=== PATIENT | male | born 1960 | race Caucasian/White ===

== ENCOUNTER 2017-06-03 20:27 | Emergency (ER) | payer OTHER ==
[~2017-06-03] VITALS: Ht 167.6 cm; Wt 74.0 kg
[2017-06-03 21:15] VITALS: BP 127/69; PULSE 78; RESP 20; O2SAT 99
[2017-06-03] MEDS ORDERED: 0.9% Sodium Chloride 1,000 ML IV ONE (21:44)
[2017-06-03] MEDS ORDERED: Ondansetron 2 mg/mL 2 mL Inj IVPUSH ONE (21:45)
[2017-06-03] MEDS ORDERED: LidocaineVisc 2%:Antacid 1:1 10 mL Syringe PO ONE (21:45)
[2017-06-03 21:52] LABS: BASOPHILS % (AUTO) 0.2 % (0-3); EOSINOPHILS % (AUTO) 3.5 % (0-5); MONOCYTES % (AUTO) 6.6 % (4-12); Mean Corpuscular Hemoglobin 38.2 pg (27.0-35.0); Mean Corpuscular Volume 105.6 fL (81-100); NEUTROPHILS % (AUTO) 78.6 % (40-74); Platelet Count 229 bil/L (150-400)
--- NOTE | 2017-06-03 22:36 | ED.REPORT ---
HPI-General Illness Date of Service Jun 03, 2017 ED Provider: Iftikhar Cosby MD Pt is a 57 y/o male w/ a hx of acid reflux presenting to the ED c/o an episode of epigastric burning with radiation up the esophagus which occurred at 16:00 today. The pain lasted until he arrived to the ED and is resolved at time of interview after GI cocktail and Zofran. During the episode of pain, he was experiencing nausea and vomiting. Pt denies hematemesis, CP, SOB, blood stools, melena, fever, chills. He attributes these episodes to heartburn. The patient takes OTC Tums but does not take a PPI. Nursing Notes Stated Complaint: STOMACH Chief Complaint: Male Abdominal Pain Nursing Notes Reviewed: Yes Allergies: Coded Allergies: droperidol (Verified Allergy, Severe, Parkinson's like symptoms, 06/03/17) Scheduled Pantoprazole DR (Pantoprazole DR) 40 Mg Tablet.dr 40 MG PO DAILY General Time Seen by MD: 21:37 Chief Complaint Abdominal pain Hx Obtained From: Patient Arrived By: Walk-in Sudden in Onset?: Yes Onset Occurred: 1 - 4 hours ago Symptom Duration: Since onset Location: : Abdomen Quality: Painful Severity: Current: No pain currently Severity: Maximum: Moderate Similar Sx Previous: Yes Past Medical History Past Medical History Acid reflux Past Surgical History None reported Smoking History Unknown if Ever Smoker Ambulatory Status Independent Review of Systems Full Review of Systems Constitutional: Denies: Chills, Fever Respiratory: Denies: Non-productive cough, Shortness of breath Cardiovascular: Denies: Chest pain, Dyspnea on exertion GI: Reports: Abdominal pain, Nausea, Vomiting, Denies: Bloody/tarry stool, Hematemesis, Melena Complete sys rev & neg: except as marked. Physical Exam Vital Signs Vital Signs Date Time Temp Pulse Resp B/P Pulse Ox O2 Delivery O2 Flow Rate FiO2 06/03/17 22:55 36.6 89 16 118/67 98 Room Air 06/03/17 21:15 36.6 78 20 127/69 99 Room Air Initial VS: Reviewed, Vital signs normal Head / Eyes: Atraumatic, Normocephalic, PERRL ENT: Mucous membranes moist, Conjunctiva normal, No scleral icterus Neck: Supple, Full range of motion Respiratory: Breath sounds normal, Clear to auscultation, No respiratory distress Cardiovascular: Regular rate & rhythm, Heart sounds normal, Intact distal pulses Extremities: Vascular intact, Neuro intact, No swelling Skin: Warm, Dry, No cyanosis Neurologic: Alert, Oriented, Nonfocal Psychiatric: Mood/affect normal, Behavior normal, Normal thought content General/Constitutional: Awake, Alert, No acute distress, Well appearing, Cooperative, Not toxic appearing Abdomen: Atraumatic, Soft, No guarding, No rebound, No distention, No palpable mass Tenderness/Guarding/Rebound: Positive: Tender epigastric (mild) Interpretation & Diagnostics Lab Results Interpretation Result Diagram: 06/03/17214806/03/172148 Test 06/03/17 21:49 White Blood Count 9.1th/mm3 (3.8-10.1) Red Blood Count 3.38mil/mm3 (4.40-5.80) Hemoglobin 12.9g/dL (13.8-17.2) Hematocrit 35.7% (41.0-50.0) Mean Corpuscular Volume 105.6fL (81-100) Mean Corpuscular Hemoglobin 38.2pg (27.0-35.0) Mean Corpuscular Hemoglobin Concent 36.1% (32.0-37.0) Red Cell Distribution Width 13.5% (12.3-15.4) Platelet Count 229bil/L (150-400) Neutrophils (%) (Auto) 78.6% (40-74) Lymphocytes (%) (Auto) 10.9% (14-46) Monocytes (%) (Auto) 6.6% (4-12) Eosinophils (%) (Auto) 3.5% (0-5) Basophils (%) (Auto) 0.2% (0-3) Sodium Level 138mEq/L (134-144) Potassium Level 4.1mEq/L (3.5-5.2) Chloride Level 99mEq/L (97-108) Carbon Dioxide Level 25mmol/L (18-29) Blood Urea Nitrogen 24mg/dL (6-24) Creatinine 0.91mg/dL (0.76-1.27) Estimat Glomerular Filtration Rate 91mL/min (>59) Glucose Level 84mg/dL (60-99) Calcium Level 9.3mg/dL (8.5-10.1) Magnesium Level 2.0mg/dL (1.6-2.6) Total Bilirubin 0.7mg/dL (0.0-1.2) Aspartate Amino Transf (AST/SGOT) 19U/L (0-50) Alanine Aminotransferase (ALT/SGPT) 19U/L (0-44) Alkaline Phosphatase 69U/L (25-150) Total Protein 7.3g/dL (6.4-8.4) Albumin 4.3g/dL (3.4-5.0) Lipase 22U/L (13-60) Hold Norman Top Tube Received (Received) Re-Eval/Medical Decision Med Decision/Clinical Course Pt is a 57 y/o male w/ a hx of acid reflux presenting to the ED c/o an episode of epigastric burning with radiation up the esophagus which occurred at 16:00 today. The pain lasted until he arrived to the ED and is resolved at time of interview after GI cocktail and Zofran. During the episode of pain, he was experiencing nausea and vomiting. Pt denies hematemesis, CP, SOB, blood stools, melena, fever, chills. He attributes these episodes to heartburn. The patient takes OTC Tums but does not take a PPI. Here in the emergency department the patient is afebrile, hemodynamically stable and in no apparent distress. He has mild tenderness about the epigastrium without guarding, rigidity or rebound. Meds given: IV fluids, Zofran, GI cocktail Labs notable as below: CBC: no leukocytosis, HCT of 38.2 CMP:unremarkable, lipase and LFTs within normal limits Overall presentation consistent with GERD/gastritis. Presentation classically suggestive thereof and the patient had complete resolution of his symptoms with GI cocktail. The history, presentation and examination is not suggestive of perforated gastric ulcer, acute surgical intra-abdominal process, acute coronary syndrome rather immediately concerning process. The patient is not taking a PPI and I have prescribed him daily pantoprazole. He will follow up closely with his primary care physician. I discussed at length dietary and lifestyle changes with him. I feel that he is appropriate for discharge. Prior to discharge follow-up and return precautions were reviewed in detail with the patient who verbalized understanding and agreement with the plan. The patient was discharged in stable condition. Counseled Regarding: Diagnosis, Lab results, Need for follow-up, When/why to return to ED Discharge & Departure Primary Impression: GERD (gastroesophageal reflux disease) Esophagitis presence: without esophagitis Qualified Code: K21.9 - Gastro- esophageal reflux disease without esophagitis Additional Impressions: Epigastric pain Nausea and vomiting Vomiting type: unspecified Vomiting Intractability: unspecified Qualified Code: R11.2 - Nausea with vomiting, unspecified Disposition: Home Discharge Condition All VS Reviewed: Yes Condition: Stable Patient Instructions: Gastroesophageal Reflux Disease (ED) Additional Instructions: Thank you for seeking care at the emergency room. It is difficult for us to make definitive diagnoses in the ED but we believe that you are experiencing acid reflux. Our primary goal today in the ED was to evaluate you for any life-threatening conditions. Your evaluation was reassuring. Labs were normal today. Avoid NSAID medications such as Ibuprofen and Naproxen. Also avoid alcohol and caffeine. Try not to eat within 4 hours of going to sleep. You will be discharged with a prescription for Pantoprazole to help tame the stomach acid. You should follow-up with your primary doctor in the next week. If your symptoms persist a gastroenterology consult may be considered. You should return to the ED immediately if you develop fevers, persistent vomiting, shortness of breath, chest pain, lightheadedness, weakness, bloody stools or vomit, or any other concerning signs or symptoms. Thank you for letting us partake in your care today. Referrals: OTHER,PHYSICIAN (PCP) Scribe Attestation Portions of this note were transcribed by Lamonte Loza. I, Dr. Cosby, personally performed the history, physical exam and medical decision-making; I reviewed and confirmed the accuracy of the information in the transcribed note. Signed by Rene Regan, 06/03/17 - [id number] Iftikhar Cosby MD Jun 03, 2017 22:36 LAMONTE LOZA Jun 03, 2017 22:43
[2017-06-03] MEDS ORDERED: PANT40TA3 PO (22:47)
[2017-06-03 22:55] VITALS: BP 118/67; PULSE 89; RESP 16; O2SAT 98
== END 2017-06-03 22:56 | disposition home or self-care (01) ==
LOC: SED 20:27
DX: K21.9 Gastro-esophageal reflux disease without esophagitis (principal); R11.2 Nausea with vomiting, unspecified; R10.84 Generalized abdominal pain
CPT/HCPCS: 36415; 80053; 83690; 83735; 85025; 96361; 96374; 99285; J2405; J7030